=== PATIENT | male | born 1965 | race Caucasian/White ===

== ENCOUNTER 2022-03-31 15:30 | Outpatient (RCR) | payer OTHER, SELFPAY | END 2022-08-08 14:42 | disposition home or self-care (01) | PROVIDERS: PCP Internal Medicine; Visit Provider Internal Medicine | DX: R39.15 Urgency of urination (principal); R15.2 Fecal urgency; R53.1 Weakness; Z51.89 Encounter for other specified aftercare | CPT/HCPCS: 97110; 97140; 97162; 97535 ==